=== PATIENT | male | born 1995 | race African-American/Black ===

== ENCOUNTER 2017-07-28 02:20 | Emergency (ER) | payer OTHER ==
[~2017-07-28] VITALS: Ht 172.7 cm; Wt 81.6 kg
--- NOTE | 2017-07-28 02:30 | NUR ---
22 YO MALE [facility] FOR ETOH INTOXICATION. PATIENT DS TO ER BED, SKIN WARM AND DRY, RESP EVEN AND UNLABORED. PATIENT GOWNED,PLACE ON PIPE SETTER. SKIN WARM AND DRY, RESP EVEN AND UNLABORED. NOTED VOMIT ON PT SHIRT. AWAITING ORDERS FROM PROVIDER, WILL CONTINUE TO MONITOR
[2017-07-28] MEDS ORDERED: ONDANSETRON HCL/PF 4 MG/2 ML VIAL IVP ONE (03:00)
[2017-07-28] MEDS ORDERED: IV NS 0.9% 1,000 ML BAG IV ONE (03:00)
[2017-07-28 03:15] LABS: BASOPHILS % (AUTO) 0.3 % (0.0-2.0); HEMATOCRIT 44 % (39-51); HEMOGLOBIN 14.8 g/dL (13.5-17.5); LYMPHOCYTES # (AUTO) 3.7 /CMM (0.8-4.8); LYMPHOCYTES % (AUTO) 40.8 % (20.0-44.0); MEAN CORPUSCULAR HGB CONC 34 g/dl (31.0-36.0); MEAN CORPUSCULAR VOLUME 88 fL (80-96); MONOCYTES # (AUTO) 0.6 /CMM (0.1-1.30); NEUTROPHILS # (AUTO) 4.6 /CMM (1.8-8.9); NEUTROPHILS % (AUTO) 50.9 % (43.0-81.0); PLATELET COUNT (AUTO) 250 /CMM (150-450); RED BLOOD CELL COUNT(AUTO) 4.98 MIL/uL (4.5-6.0); WHITE BLOOD COUNT (AUTO) 9.1 K/uL (4.3-11.0)
[2017-07-28] MEDS ORDERED: ONDANSETRON HCL/PF 4 MG/2 ML VIAL ONE (03:22)
--- NOTE | 2017-07-28 03:29 | NUR ---
MEDICATED PT ORDERED
[2017-07-28 03:43] LABS: ALBUMIN 4.3 g/dL (3.4-5.0); BILIRUBIN,DIRECT 0.1 mg/dL (0.0-0.2); BILIRUBIN,TOTAL 0.2 mg/dL (0.2-1.0); CALCIUM, SERUM 8.8 mg/dL (8.5-10.1); CREATININE 0.9 mg/dL (0.6-1.3); POTASSIUM 3.4 mmol/L (3.5-5.1); SALICYLATE 3.5 mg/dL (2.8-20.0); TOTAL PROTEIN, SERUM 7.6 g/dL (6.4-8.2)
[2017-07-28] MEDS ORDERED: MAG HYDROX/AL HYDROX/SIMETH 30 ML UDC ONE (08:09)
--- NOTE | 2017-07-28 08:10 | NUR ---
Pt is walked to the restroom in a steady gait. Dr. [place] notified
--- NOTE | 2017-07-28 08:16 | NUR ---
Patient discharged to home in stable condition. Written and verbal after care instructions given. Patient verbalizes understanding of instruction. Pt has no IV access noted. Ambulatory in a stead gait. Waiting room showed to the patient, he is waiting for his ride. Amulatory in a steady gait.
[2017-07-28 08:20] VITALS: BP 108/74
[2017-07-28] MEDS ORDERED: MAG HYDROX/AL HYDROX/SIMETH 30 ML UDC PO ONE (08:30)
== END 2017-07-28 08:21 | disposition home or self-care (01) ==
LOC: ER 02:22
DX: F10.129 Alcohol abuse with intoxication, unspecified (principal); R40.4 Transient alteration of awareness; Y90.9 Presence of alcohol in blood, level not specified
CPT/HCPCS: 36415; 70450-TC; 71045-TC; 72125-TC; 80048-TC; 80076-TC; 82962-TC; 85025-TC; A4606; G0480; J2405; Z7610